=== PATIENT | male | born 1960 | race Hispanic/Latino ===

== ENCOUNTER 2024-04-26 18:38 | Observation (INO) | payer OTHER ==
[~2024-04-26] VITALS: Ht 172.7 cm; Wt 69.4 kg
[2024-04-26 18:59] VITALS: PULSE 78; RESP 16; TEMP 98.5
[2024-04-26 20:17] LABS: BASOPHILS % 0.3 % (0.0-1.0); EOSINOPHILS # (AUTO) 0.1 (0.0-0.4); EOSINOPHILS % 0.9 % (0.0-6.0); HEMATOCRIT 35.2 % (38.2-49.6); HEMOGLOBIN 11.7 g/dL (14.0-18.0); LYMPHOCYTES # (AUTO) 0.8 (1.0-3.2); LYMPHOCYTES % 12.4 % (18.0-39.1); MEAN CORPUSCULAR HEMOGLOBIN 31.8 pg (28-32); MEAN CORPUSCULAR HGB CONC 33.2 g/dL (31-35); MEAN CORPUSCULAR VOLUME 95.7 fL (81-99); MONOCYTES # (AUTO) 0.9 (0.2-0.8); MONOCYTES % 13.4 % (4.4-11.3); NEUTROPHILS # (AUTO) 4.8 (2.1-6.9); NEUTROPHILS % 72.7 % (38.7-80.0); PLATELET COUNT 228 x10e3/uL (140-360); RED BLOOD COUNT 3.68 x10e6/uL (4.3-5.7); RED CELL DISTRIBUTION WIDTH 14.7 % (11.7-14.4); WHITE BLOOD COUNT 6.62 x10e3/uL (4.8-10.8)
[2024-04-26] MEDS: SODIUM CHLORIDE 0.9% 1000ML 1,000 ML IV SCH (20:21)
[2024-04-26 20:40] LABS: INR 0.94; PROTHROMBIN TIME 13.2 seconds (11.9-14.5)
[2024-04-26 20:41] LABS: PARTIAL THROMBOPLASTIN TIME 37.6 seconds (23.8-35.5)
[2024-04-26 20:44] LABS: ANION GAP 15.2 mmol/L (8-16); CALCIUM 9.1 mg/dL (8.4-10.2); CREATININE, SERUM 0.85 mg/dL (0.72-1.25); POTASSIUM 4.2 mmol/L (3.5-5.1)
[2024-04-26] MEDS ORDERED: TRAMADOL HCL 50 MG TAB PO PRN (21:15)
[2024-04-26 21:30] VITALS: BP 132/66; PULSE 70; RESP 18; TEMP 98.1; O2SAT 97
[2024-04-27 00:51] VITALS: BP 132/66; PULSE 70; RESP 18; TEMP 98.1; O2SAT 97
[2024-04-27 05:08] VITALS: BP 134/84; PULSE 68; RESP 17; TEMP 98.3; O2SAT 95
[2024-04-27 07:52] VITALS: BP 142/69; PULSE 68; RESP 19; TEMP 97.7; O2SAT 98
[2024-04-27] MEDS ORDERED: LIDOCAINE HCL 1% 30ML-PF VIAL ONE (09:58)
[2024-04-27] MEDS ORDERED: SODIUM CHLORIDE 0.9% 500ML 500 ML ONE (09:59)
[2024-04-27] MEDS ORDERED: IOPAMIDOL 370 MG/ML 100 ML INFUS..BTL INJ ONE (09:59)
[2024-04-27] MEDS ORDERED: MIDAZOLAM HCL 2 MG/2 ML VIAL ONE (10:47)
[2024-04-27] MEDS ORDERED: FENTANYL CITRATE/PF 100MCG/2 ML INJ ONE (10:47)
[2024-04-27 12:04] VITALS: BP 131/76; PULSE 70; RESP 19; TEMP 98.1; O2SAT 95
[2024-04-27 16:01] VITALS: BP 132/74; PULSE 83; RESP 18; TEMP 97.9; O2SAT 97
== END 2024-04-27 18:05 | disposition home or self-care (01) ==
LOC: ER 19:18 → ERHOLD 19:50 → MED/SURG2 20:50
PROVIDERS: ADMIT Internal Medicine; ATTEND Internal Medicine
DX: K94.23 Gastrostomy malfunction (principal); Z85.810 Personal history of malignant neoplasm of tongue; D53.9 Nutritional anemia, unspecified; I10 Essential (primary) hypertension
CPT/HCPCS: 36415; 49450; 74470; 80048; 85025; 85610; 85730; 99284; C1769; G0378 ×2; J2003; J2250; J3010; J7030; J7040; Q9967; 99152